=== PATIENT | female | born 1990 | race Caucasian/White ===

== ENCOUNTER 2019-02-17 05:44 | Emergency (ER) | payer OTHER ==
[2019-02-17] MEDS ORDERED: Amoxicillin/Clavulanate TAB* 875 MG PO ONE (06:20)
[2019-02-17] MEDS ORDERED: Ibuprofen TAB* 600 MG PO ONE (06:20)
--- NOTE | 2019-02-17 06:29 | ED ---
Throat Pain/Nasal Congestion - HPI Summary HPI Summary: Patient is a 28-year-old female who presents emergency department for left ear pain times several days. Patient states she is also had a mild sore throat and cough have resolved but ear pain has persisted. No associated symptoms of fever. Symptoms are mild in severity. No current modifying factors. Past medical history of heart murmur and developmental delay. - History of Current Complaint Chief Complaint: EDEarPain Time Seen by Provider: 02/17/19 06:02 Hx Obtained From: Patient - Allergies/Home Medications Allergies/Adverse Reactions: Allergies Allergy/AdvReac Type Severity Reaction Status Date / Time No Known Allergies Allergy Verified 07/14/14 21:41 PMH/Surg Hx/FS Hx/Imm Hx Previously Healthy: Yes Infectious Disease History: No Infectious Disease History: Denies: Traveled Outside the [place] in Last 30 Days - Family History Known Family History: Positive: Non-Contributory - Social History Occupation: Unemployed Lives: With Family Alcohol Use: None Substance Use Type: Reports: None Smoking Status (MU): Light Every Day Tobacco Smoker Review of Systems Constitutional: Negative Negative: Fever, Chills Positive: Ear Ache. Negative: Sore Throat Cardiovascular: Negative Negative: Shortness Of Breath, Cough Gastrointestinal: Negative Negative: Abdominal Pain, Vomiting, Diarrhea Neurological: Negative All Other Systems Reviewed And Are Negative: Yes Physical Exam Triage Information Reviewed: Yes Vital Signs On Initial Exam: Initial Vitals Temp Pulse Resp BP Pulse Ox 97.1 F 91 18 143/77 96 02/17/19 05:44 02/17/19 05:44 02/17/19 05:44 02/17/19 05:44 02/17/19 05:44 Vital Signs Reviewed: Yes Appearance: Positive: Well-Appearing - Pt. sitting on bed in NAD. Talkative. Skin: Positive: Warm, Dry Head/Face: Positive: Normal Head/Face Inspection Eyes: Positive: Normal, EOMI, GEN ENT: Positive: Other - Mild tonsilar edema and erythema without excudates. Uvula midline. Rigth TM unremarkable. Left TM is markedly erythematous and bulging with fluid level. No mastoid tenderness. Neck: Positive: Supple, Nontender. Negative: Nuchal Rigidity Respiratory/Lung Sounds: Positive: Clear to Auscultation, Breath Sounds Present Cardiovascular: Positive: Normal, RRR, Murmur Diagnostics - Vital Signs Vital Signs Temp Pulse Resp BP Pulse Ox 02/17/19 05:44 97.1 F 91 18 143/77 96 - Laboratory Lab Statement: Any lab studies that have been ordered have been reviewed, and results considered in the medical decision making process. EENT Course/Dx - Course Course Of Treatment: Patient's exam is consistent with otitis media. She was given a dose of motrin and Augmentin in the ER and prescription sent to pharmacy. Can apply warm compresses to help with pain. Follow-up with [facility] if needed. To return to the ER symptoms change or worsen. Patient understands and agrees with plan. - Differential Diagnoses Differential Diagnoses: Mastoiditis, Otitis Externa, Otitis Media, Sinusitis, URI/Bronchitis - Diagnoses Provider Diagnoses: Otitis media Discharge - Sign-Out/Discharge Documenting (check all that apply): Patient Departure Patient Received Moderate/Deep Sedation with Procedure: No - Discharge Plan Condition: Good Disposition: HOME Prescriptions: Amoxicillin/Clavulanate TAB* [Augmentin TAB 875*] 875 mg PO BID #20 tab Ibuprofen TAB* [Motrin TAB* 600 MG] 600 mg PO Q6H PRN #20 tab PRN Reason: Pain Patient Education Materials: Ear Infection (ED) Referrals: [facility] [Outside] Additional Instructions: Follow up with the [facility] if needed Take medication as directed Can apply warm compress to ear to help with pain Return to ER if symptoms change or worsen - Billing Disposition and Condition Condition: GOOD Disposition: Home
[2019-02-17 06:39] VITALS: BP 0/0
== END 2019-02-17 06:38 | disposition home or self-care (01) ==
LOC: ED 05:44
DX: H66.90 Otitis media, unspecified, unspecified ear (principal); F17.210 Nicotine dependence, cigarettes, uncomplicated
CPT/HCPCS: 99282; A9270-GY